=== PATIENT | female | born 2005 | race Hispanic/Latino ===

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

== ENCOUNTER 2024-03-04 18:35 | Emergency (ER) | payer MEDICAID, OTHER ==
[~2024-03-04] VITALS: Ht 165.1 cm; Wt 85.3 kg
[~2024-03-04 18:35] MED LIST: FAMO-136 PO; LACT1CAP81 PO; ONDA-243 SL
[2024-03-04 19:16] LABS: ADD UA MICROSCOPIC YES; APPEARANCE,URINE CLOUDY (CLEAR); BILIRUBIN,URINE NEGATIVE (NEGATIVE); COLOR,URINE YELLOW (YELLOW); GLUCOSE, URINE (UA) NEGATIVE (NEGATIVE); KETONES,URINE 60 mg/dL (NEGATIVE); LEUKOCYTE ESTERASE ,URINE NEGATIVE Leu/uL (NEGATIVE); NITRATE,URINE NEGATIVE (NEGATIVE); OCCULT BLOOD,URINE NEGATIVE (NEGATIVE); PROTEIN,URINE 20 mg/dL (NEGATIVE); UROBILINOGEN,URINE 0.2 mg/dL (0.2-1.0)
[2024-03-04 19:18] LABS: HCG,QUALITATIVE URINE NEGATIVE (NEGATIVE)
[2024-03-04 19:19] LABS: HEMATOCRIT 39.8 % (36-48); MEAN CORPUSCULAR HEMOGLOBIN 26.2 pg (27.0-33.0); MEAN CORPUSCULAR HGB CONC 32.4 g/dL (32.0-36.0); MEAN CORPUSCULAR VOLUME 80.7 fL (80-100); RED BLOOD CELL COUNT(AUTO) 4.93 MIL/uL (4.00-5.50); RED CELL DISTRIBUTION WIDTH 15.9 % (11.0-15.5); WHITE BLOOD COUNT (AUTO) 10.8 K/uL (4.8-10.8)
[2024-03-04 19:20] LABS: BACTERIA,URINE RARE /HPF (None Seen); MUCUS,URINE RARE LPF (None Seen); SQUAMOUS EPITHELIAL CELL,UR RARE /HPF (0-2); UNCLASSIFIED CRYSTAL 3 /HPF (None Seen)
[2024-03-04 19:28] LABS: CREATININE 0.8 mg/dL (0.5-1.0); POTASSIUM 3.5 mmol/L (3.5-5.1)
[2024-03-04 19:44] VITALS: TEMP 98.3
[2024-03-04] MEDS ORDERED: IOHEXOL-350 75 ML VIAL IV ONE (19:56)
[2024-03-04] MEDS: ondanSETRON 4MG INJ IVP ONE (19:58)
[2024-03-04] MEDS: morPHINE 4 MG SYG IVP ONE (19:58)
[2024-03-04] MEDS: 0.9%NACL 1000ML 1,000 ML IV ONE (19:59)
[2024-03-04 21:04] VITALS: BP 115/72; PULSE 79; RESP 16; O2SAT 100
[2024-03-04] MEDS ORDERED: ONDA-243 PO (21:47)
== END 2024-03-04 22:13 | disposition home or self-care (01) ==
LOC: EDH 18:35
DX: K52.9 Noninfective gastroenteritis and colitis, unspecified (principal); Z79.899 Other long term (current) drug therapy; Z88.8 Allergy status to other drugs, medicaments and biological substances
CPT/HCPCS: 99285; 74177; 96374; 96361; 96375; 80048; 83690; 85027; 81001; 81025; 36415; J7030; J2405; J2270; Q9967